=== PATIENT | female | born 1965 | race Hispanic/Latino ===

== ENCOUNTER 2018-01-17 21:07 | Emergency (ER) | payer SELFPAY ==
[2018-01-17 21:53] LABS: #Eosinphils 0.2 thou/uL (0.0-0.7); #Lymphocytes 2.4 thou/uL (1.20-3.40); #Monocytes 0.5 thou/uL (0.11-0.59); #Neutrophils 8.5 thou/uL (1.40-6.50); %Basophils 0.3 % (0.0-1.0); %Eosinophils 1.8 % (0.0-10.0); %Lymphocytes 20.7 % (21.0-51.0); %Monocytes 4.3 % (0.0-10.0); %Neutrophils 72.9 % (42.0-75.0); Hemoglobin 12.2 g/dL (12.0-16.0); Mean Corpuscular HGB CONC 33.5 g/dL (32.0-36.0); Mean Corpuscular Hemoglobin 29.8 pg (27.0-31.0); Mean Corpuscular Volume 88.8 fl (81.0-99.0); Mean Platelet Volume 6.5 fL (7.4-10.4); Platelet Count 367 thou/uL (130-400); RBC Distribution Width 13.6 % (11.5-14.5); White Blood Cell (WBC) Count 11.7 thou/uL (4.8-10.8)
[2018-01-17 22:14] LABS: ALT (SGPT) 12 U/L (8-55); AST (SGOT) 18 U/L (5-34); Albumin 4.1 g/dL (3.5-5.0); Alkaline Phosphatase 108 U/L (40-150); Anion Gap 13 mmol/L (10-20); BUN (Urea Nitrogen) 14 mg/dL (9.8-20.1); Bilirubin, Total 0.2 mg/dL (0.2-1.2); CK (CPK) 63 U/L (29-168); Calc. Creatinine Clearance 0 mL/min (70-130); Calcium 8.9 mg/dL (7.8-10.44); Carbon Dioxide 23 mmol/L (22-29); Chloride 104 mmol/L (98-107); Estimated GFR-MDRD 80; Globulin 3.2 g/dL (2.4-3.5); Glucose 149 mg/dL (70-105); Lipase 23 U/L (8-78); Potassium 3.8 mmol/L (3.5-5.1); Protein, Total 7.3 g/dL (6.0-8.3); Sodium 136 mmol/L (136-145)
[2018-01-17 22:27] LABS: BHCG - Serum Negative (NEGATIVE); Pregs Control Background? CLEAR/WHITE (CLR/WHITE); Pregs Control Bar Appear? YES (CONTROL BAR)
== END 2018-01-17 23:54 | disposition home or self-care (01) ==
LOC: ERS 21:07
DX: R10.33 Periumbilical pain (principal)
CPT/HCPCS: 36415; 80053; 82550; 83690; 84703; 85025; 93005

== ENCOUNTER 2018-05-10 21:36 | Emergency (ER) | payer SELFPAY | END 2018-05-10 23:55 | disposition home or self-care (01) | LOC: ERS 21:36 | DX: L73.9 Follicular disorder, unspecified (principal) | CPT/HCPCS: 99283 ==

== ENCOUNTER 2018-07-19 12:13 | Emergency (ER) | payer SELFPAY ==
[2018-07-19 13:36] LABS: #Eosinphils 0.3 thou/uL (0.0-0.7); #Lymphocytes 2.8 thou/uL (1.20-3.40); #Monocytes 0.5 thou/uL (0.11-0.59); #Neutrophils 8.5 thou/uL (1.40-6.50); %Basophils 0.3 % (0.0-1.0); %Eosinophils 2.8 % (0.0-10.0); %Lymphocytes 22.8 % (21.0-51.0); %Monocytes 3.8 % (0.0-10.0); %Neutrophils 70.4 % (42.0-75.0); Hemoglobin 12.5 g/dL (12.0-16.0); Mean Corpuscular Hemoglobin 28.5 pg (27.0-31.0); Mean Corpuscular Volume 89.1 fL (78.0-98.0); Mean Platelet Volume 7.3 fL (7.4-10.4); Platelet Count 410 thou/uL (130-400); Red Blood Cell (RBC) Count 4.36 mill/uL (4.20-5.40); White Blood Cell (WBC) Count 12.1 thou/uL (4.8-10.8)
[2018-07-19 13:57] LABS: Bilirubin Negative (Negative); Blood, Urine Small (Negative); Clarity CLEAR (Clear); Glucose, Urine (Dipstick) Negative (Negative); Leukocyte Negative (Negative); Nitrite Negative (Negative); Protein, Urine (Dipstick) Negative (Neg-Trace); Specific Gravity, Urine 1.016 (1.002-1.036); Urobilinogen 0.2 mg/dL (0.2-1.0)
[2018-07-19 13:59] LABS: Bacteria/HPF None Seen HPF (None Seen); Hyaline Casts/LPF 0-3 HYALINE CAST LPF (0-3 Hyaline); Pathc Cast-AUWi Flag 0.43 (0-2.49); Squamous Epithelial 0-3 HPF (0-3); WBC/HPF None Seen HPF (0-3)
[2018-07-19] MEDS ORDERED: Ketorolac Tromethamine 30 MG/ML VIAL ONE (14:07)
--- NOTE | 2018-07-19 14:09 | ULT ---
ULTRASOUND ABDOMEN LIMITED: (RIGHT UPPER QUADRANT) 07/19/2018 HISTORY: A 52-year-old female with right upper quadrant abdominal pain. FINDINGS: Gallbladder: Contracted, therefore evaluation is limited. No large gallstone identified. Common duct: 2 mm. Liver: Normal size and echogenicity. Pancreas: Nonspecific sonographic appearance. Right kidney: No hydronephrosis. IMPRESSION: 1. Contracted gallbladder. The patient is not n.p.o. 2. No biliary dilation. [facility] POS: [facility]
[2018-07-19 14:19] LABS: ALT (SGPT) 14 U/L (8-55); AST (SGOT) 19 U/L (5-34); Albumin 4.3 g/dL (3.5-5.0); Alkaline Phosphatase 96 U/L (40-150); Anion Gap 12 mmol/L (10-20); BUN (Urea Nitrogen) 19 mg/dL (9.8-20.1); Bilirubin, Total 0.2 mg/dL (0.2-1.2); Calc. Creatinine Clearance 0 mL/min (70-130); Calcium 9.3 mg/dL (7.8-10.44); Carbon Dioxide 26 mmol/L (22-29); Chloride 106 mmol/L (98-107); Estimated GFR-MDRD 58; Globulin 3.2 g/dL (2.4-3.5); Glucose 91 mg/dL (70-105); Lipase 29 U/L (8-78); Potassium 4.7 mmol/L (3.5-5.1); Protein, Total 7.5 g/dL (6.0-8.3); Sodium 139 mmol/L (136-145)
--- NOTE | 2018-07-19 15:31 | CT ---
CT OF THE ABDOMEN AND PELVIS WITHOUT CONTRAST: Date: 07/19/18 INDICATION: History of abdominal pain and bloating. COMPARISON: None. FINDINGS: The lung bases are clear. The unopacified liver, pancreas, and adrenal glands appear within normal limits. The spleen is normal appearing. There is a 3.0 mm and a 2.0 mm calculus involving the mid to lower pole of the left kidne y, respectively. No right-sided renal calculus is evident. No ureteral calculus is noted. There are bilateral tubal ligation clips. No free fluid or enlarged lymph nodes are evident. Unopacified large and small bowel are unremarkable appearing. There is a normal appendix in the right lower quadrant of the abdomen. No definite acute osseous abnormality is evident. IMPRESSION: 1. Left-sided nephrolithiasis appears similar to a comparison in 2017. 2. Bilateral tubal ligation clips. POS: [facility]
== END 2018-07-19 15:55 | disposition home or self-care (01) ==
LOC: ERS 12:13
DX: N20.0 Calculus of kidney (principal); K80.50 Calculus of bile duct without cholangitis or cholecystitis without obstruction
CPT/HCPCS: 74176; 76705; 80053; 81003; 81015; 83690; 85025; 96374; J1885

== ENCOUNTER 2020-08-19 21:55 | Inpatient (IN) | payer SELFPAY ==
[~2020-08-19 21:55] MED LIST: Iopamidol-370 76% 500 ML 1 ML ONE
[2020-08-19 22:29] LABS: Bacteria/HPF None Seen HPF (None Seen); Bilirubin Negative (Negative); Blood, Urine 2+ (Negative); Clarity Clear (Clear); Glucose, Urine (Dipstick) Normal (Negative); Ketone, Urine Negative (Negative); Leukocyte 25 Leu/uL (Negative); Mucous/LPF Rare LPF (<2+); Nitrite Negative (Negative); Protein, Urine (Dipstick) 30 mg/dL (Neg-Trace); Specific Gravity, Urine 1.019 (1.002-1.036); Squamous Epithelial 0-3 HPF (0-3); Urobilinogen Normal mg/dL (Less than 2); pH, Urine 7.5 (5.0-9.0)
[2020-08-19] MEDS ORDERED: Ondansetron ODT 4 MG TAB ONE (22:43)
[2020-08-19 22:54] LABS: Hemoglobin 12.3 g/dL (12.0-16.0); Mean Corpuscular HGB CONC 33.2 g/dL (32.0-36.0); Mean Corpuscular Hemoglobin 29.3 pg (27.0-31.0); Mean Corpuscular Volume 88.3 fL (78.0-98.0); Mean Platelet Volume 7.1 fL (7.4-10.4); Platelet Count 352 thou/uL (130-400); RBC Distribution Width 12.5 % (11.5-14.5); White Blood Cell (WBC) Count 16.5 thou/uL (4.8-10.8)
[2020-08-19 23:05] LABS: Band 3 % (5-11); Lymphocytes 10 % (21-51); MDiff Complete? YES; Monocytes 2 % (0-10); Neutrophil 85 % (42-75); Platelet Morphology Comment Appears Adequate
[2020-08-19 23:07] LABS: ALT (SGPT) 12 U/L (8-55); AST (SGOT) 18 U/L (5-34); Albumin 3.8 g/dL (3.5-5.0); Alkaline Phosphatase 89 U/L (40-110); Anion Gap 13 mmol/L (10-20); BUN (Urea Nitrogen) 20 mg/dL (9.8-20.1); Bilirubin, Total 0.4 mg/dL (0.2-1.2); Calc. Creatinine Clearance 0 mL/min (70-130); Calcium 8.4 mg/dL (7.8-10.44); Carbon Dioxide 24 mmol/L (22-29); Chloride 103 mmol/L (98-107); Glucose 106 mg/dL (70-105); Lipase 244 U/L (8-78); Potassium 3.3 mmol/L (3.5-5.1); Protein, Total 6.8 g/dL (6.0-8.3); Sodium 137 mmol/L (136-145)
[2020-08-19] MEDS ORDERED: Morphine 4 MG/ML VIAL ONE (23:52)
[2020-08-20] MEDS ORDERED: Piperacillin/Tazobactam 4.5 GM VIAL ONE (00:20)
[2020-08-20 02:03] LABS: Lactic Acid 1.9 mmol/L (0.5-2.2)
[2020-08-20] MEDS ORDERED: Ondansetron PF 4 MG/2 ML Vial IVP PRN ×2 (03:45→10:06)
[2020-08-20] MEDS ORDERED: Acetaminophen 325 MG TAB PO PRN (03:45)
[2020-08-20] MEDS ORDERED: Ondansetron ODT 4 MG TAB SL PRN (03:45)
[2020-08-20 04:06] VITALS: BMI 32.6
[2020-08-20] MEDS: Lactated Ringer's 1,000 ML IV SCH ×5 (04:22→22:51)
[2020-08-20] MEDS: Piperacillin/Tazobactam 4.5 GM in Sodium Chloride 0.9% 100 ML IVPB SCH ×4 (05:24→20:17)
[2020-08-20] MEDS: Morphine 4 MG/ML VIAL SLOW IVP PRN ×3 (05:47→22:47)
--- NOTE | 2020-08-20 07:46 | CT ---
CT ABDOMEN AND PELVIS WITH CONTRAST: COMPARISON: 07/19/2018. HISTORY: Lower abdominal pain that began at 4:30. Burning with urination. TECHNIQUE: Multiple contiguous axial images were obtained in a CT of the abdomen and pelvis with contrast. Sagi ttal and coronal reformats were performed. FINDINGS: Scattered diverticula are seen in the colon. Stranding changes seen surrounding some of the divertic kenrick in the sigmoid colon. These diverticula and stranding changes are immediately on top of the dome of the urinary bladder. There are multiple scattered foci of free air in the abdomen consistent wit h a perforation of this acute diverticulitis. No focal fluid collection is seen in the abdomen or pe lvis. The liver, gallbladder, right kidney, adrenal glands, spleen, and pancreas are unremarkable. There i s a small 1.2 cm cyst in the left kidney. No abdominal or pelvic lymphadenopathy are seen. The small bowel is normal in caliber. The appendix is normal. The reproductive organs are unremarkable. Tubal ligation clips are seen bilaterally. The osseous structures and visualized inferior thorax are unremarkable. The abdominal wall soft tiss ues are unremarkable. IMPRESSION: Perforated acute diverticulitis without evidence of focal drainable intraabdominal fluid collection. The inflammatory changes are immediately along the dome of the urinary bladder and is likely the cau se for the patient's urinary urgency and burning. No definite fistula is seen between the segment of bowel and the urinary bladder at this time. POS: [facility]
[2020-08-20] MEDS ORDERED: Ondansetron ODT 4 MG TAB PO PRN ×2 (10:06→10:11)
[2020-08-20] MEDS ORDERED: Morphine 2 MG/ML VIAL SLOW IVP PRN (10:06)
[2020-08-20] MEDS ORDERED: Ondansetron ODT 8 MG TAB SL PRN (10:11)
[2020-08-20] MEDS ORDERED: Ondansetron ODT 8 MG TAB PO PRN (10:11)
[2020-08-20] MEDS ORDERED: Ketorolac Tromethamine 30 MG/ML VIAL IVP PRN (10:11)
[2020-08-20] MEDS ORDERED: Ketorolac Tromethamine 30 MG/ML VIAL IVP SCH (10:15)
--- NOTE | 2020-08-20 10:38 | HP ---
HISTORY OF PRESENT ILLNESS: Coleen Moore is a 54-year-old female, who works for a [employer]. She began experiencing lower abdominal pain yesterday, suffered anorexia, increased pain with movement, nausea without vomiting, but no fever, seen in the emergency room, evaluated, noted to have a white count of 16, hemoglobin of 12. Comprehensive metabolic profile unremarkable. Underwent a CAT scan revealing changes consistent with diverticulitis. There were scattered diverticula seen in the colon, stranding changes noted surrounding some of the diverticula in the sigmoid colon. There were some scattered foci of free air in the abdominal cavity, but no focal fluid collection. The patient has been admitted, placed on intravenous antibiotics, n.p.o. 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 ALLERGIES: NONE. TOBACCO: None. ALCOHOL: Rarely. MEDICATIONS: None routinely. PAST SURGICAL HISTORY: Umbilical hernia repair in the past, bilateral tubal ligation, colonoscopy at age 51, preformed by [facility] residency, referred from [facility] at that time. PAST MEDICAL HISTORY: Noncontributory. SOCIAL HISTORY: The patient is with 4 children. REVIEW OF SYSTEMS: Noncontributory. FAMILY HISTORY: Noncontributory. PHYSICAL EXAMINATION: VITAL SIGNS: Height 5 feet 3 inches, weight 184 pounds, 32 BMI. Temperature 98.7, pulse 82, blood pressure 105/65. HEAD, EARS, EYES, NOSE, AND THROAT: Unremarkable. LUNGS: Clear to auscultation. CARDIAC: Regular rate and rhythm without murmur or gallop. ABDOMEN: Soft with mild voluntary guarding in her right upper quadrant, right lower quadrant, softer in her left upper quadrant, significantly more guarding in her suprapubic area, left lower quadrant. EXTREMITIES: Without edema. LABORATORY DATA: As noted above. CAT scan findings as noted above. ASSESSMENT AND PLAN: Diverticulitis. This is her first episode. Although, there were small foci of free air seen in the abdominal cavity. I think her exam does not suggest that she needs surgery. Overall, she feels better. I would suggest ice chips, bowel rest, IV fluids, aggressive intravenous antibiotics. I have talked to her about the complications of diverticulitis, possible indications for surgery, but at this time we are treating her nonsurgical hoping to avoid an operation. I have recommended n.p.o. and if she improves, we will start liquids and advance to soft diet, as her improves, hopefully, eventually, we can transition to oral antibiotics as an outpatient to finish up this course of treatment. We would recommend low-fiber diet for 2 weeks and high-fiber after that. We will follow her clinically. Job ID: [id number]
[2020-08-20] MEDS: Ketorolac Tromethamine 30 MG/ML VIAL IVP SCH ×2 (12:26→17:54)
[2020-08-20 13:47] LABS: SARS-CoV-2 MS2 Positive; SARS-CoV-2 N Gene Negative; SARS-CoV-2 S Gene Negative; SARS-CoV-2 by NAA Not Detected (NotDetected); SARS-CoV-2 orf1ab Negative
[2020-08-20] MEDS: Famotidine/PF 20 mg/2ml Vial SLOW IVP SCH (20:18)
[2020-08-20] MEDS: Enoxaparin Sodium 40 MG/0.4 ML SYRINGE SC SCH (20:18)
[2020-08-21] MEDS: Ketorolac Tromethamine 30 MG/ML VIAL IVP SCH ×4 (00:07→18:36)
[2020-08-21] MEDS: Piperacillin/Tazobactam 4.5 GM in Sodium Chloride 0.9% 100 ML IVPB SCH ×4 (01:45→20:50)
[2020-08-21 05:28] LABS: ALT (SGPT) 8 U/L (8-55); AST (SGOT) 15 U/L (5-34); Albumin 2.9 g/dL (3.5-5.0); Alkaline Phosphatase 68 U/L (40-110); Anion Gap 13 mmol/L (10-20); BUN (Urea Nitrogen) 17 mg/dL (9.8-20.1); Calc. Creatinine Clearance 84 mL/min (70-130); Calcium 8.1 mg/dL (7.8-10.44); Carbon Dioxide 24 mmol/L (22-29); Chloride 106 mmol/L (98-107); Globulin 2.8 g/dL (2.4-3.5); Glucose 82 mg/dL (70-105); Potassium 3.3 mmol/L (3.5-5.1); Protein, Total 5.7 g/dL (6.0-8.3); Sodium 140 mmol/L (136-145)
[2020-08-21 05:41] LABS: Band 11 % (5-11); Eosinophils 2 % (0-10); Hypochromia SLIGHT = 6-15 cells (100X) (0-5/hpf); Lymphocytes 11 % (21-51); MDiff Complete? YES; Mean Corpuscular Hemoglobin 29.9 pg (27.0-31.0); Mean Corpuscular Volume 90.6 fL (78.0-98.0); Mean Platelet Volume 7.3 fL (7.4-10.4); Monocytes 1 % (0-10); Neutrophil 75 % (42-75); Platelet Count 253 thou/uL (130-400); Platelet Morphology Comment Appears Adequate; RBC Distribution Width 12.8 % (11.5-14.5); Red Blood Cell (RBC) Count 3.33 mill/uL (4.20-5.40); White Blood Cell (WBC) Count 17.4 thou/uL (4.8-10.8)
[2020-08-21] MEDS: Ondansetron PF 4 MG/2 ML Vial IVP PRN (06:15)
[2020-08-21] MEDS: Famotidine/PF 20 mg/2ml Vial SLOW IVP SCH ×2 (08:28→20:51)
[2020-08-21] MEDS: Morphine 4 MG/ML VIAL SLOW IVP PRN ×2 (08:28→13:46)
[2020-08-21] MEDS: Lactated Ringer's 1,000 ML IV SCH (08:29)
--- NOTE | 2020-08-21 17:39 | PRG ---
DATE OF SERVICE: 08/21/2020 SUBJECTIVE: Coleen Moore is feeling better, although still having some abdominal pain. She states that when she presented in the emergency room yesterday, she had terrible pain, but it has improved since last night and remains about the same today. She has passed flatus, but not yet had a bowel movement. OBJECTIVE: VITAL SIGNS: She has been afebrile, 99.1 degrees; 86; 18; 172/82. LUNGS: Clear to auscultation. CARDIAC: Regular rate and rhythm without murmur, rub, or gallop. ABDOMEN: Soft with voluntary guarding in all quadrants with more severe pain in suprapubic and left lower quadrant. EXTREMITIES: Unremarkable. LABORATORY DATA: This morning, her white count is 17.4 with an unremarkable differential, hemoglobin 10. Sodium 140 and potassium 3.3. ASSESSMENT AND PLAN: Perforated diverticulitis. I had a long discussion with the patient regarding treatment options for emergent operations for diverticulitis that required resection and colostomy and explained her the importance of bowel rest, intravenous antibiotics to try to avoid operation. At this point, she is agreeable. She is much improved today than when she presented to the emergency room yesterday, but I am still concerned about her abdominal exam. She did have free air under her diaphragms and elsewhere without any significant fluid. At this point, we would recommend continuation of intravenous antibiotics. We would continue bowel rest, allowing only sips and chips. We will change her IV fluid to LR with potassium and recheck her labs tomorrow as she has mild hypokalemia. She has good activity level and she is on DVT prophylaxis. I will be out of town for the next [address] Carrasco will be covering and inform him of her condition. He will follow her tomorrow. Job ID: [id number]
[2020-08-21] MEDS: Potassium Chloride 20 MEQ in Lactated Ringer's 1,000 ML IV SCH (19:09)
[2020-08-21] MEDS: Enoxaparin Sodium 40 MG/0.4 ML SYRINGE SC SCH (20:51)
[2020-08-22] MEDS: hydrALAZINE 20 MG/ML VIAL SLOW IVP PRN ×4 (00:01→17:26)
[2020-08-22] MEDS: Piperacillin/Tazobactam 4.5 GM in Sodium Chloride 0.9% 100 ML IVPB SCH ×4 (00:03→20:29)
[2020-08-22] MEDS: Potassium Chloride 20 MEQ in Lactated Ringer's 1,000 ML IV SCH ×5 (01:21→18:54)
[2020-08-22] MEDS: Ondansetron PF 4 MG/2 ML Vial IVP PRN ×2 (02:13→08:57)
[2020-08-22 05:59] LABS: #Eosinphils 0.2 thou/uL (0.0-0.7); #Lymphocytes 1.8 thou/uL (1.20-3.40); #Monocytes 0.6 thou/uL (0.11-0.59); #Neutrophils 16.2 thou/uL (1.40-6.50); %Basophils 0.2 % (0.0-1.0); %Eosinophils 0.8 % (0.0-10.0); %Lymphocytes 9.5 % (21.0-51.0); %Monocytes 3.2 % (0.0-10.0); %Neutrophils 86.3 % (42.0-75.0); Hemoglobin 9.9 g/dL (12.0-16.0); Mean Corpuscular HGB CONC 33.4 g/dL (32.0-36.0); Mean Corpuscular Hemoglobin 30.5 pg (27.0-31.0); Mean Corpuscular Volume 91.3 fL (78.0-98.0); Mean Platelet Volume 7.5 fL (7.4-10.4); Platelet Count 273 thou/uL (130-400); RBC Distribution Width 12.9 % (11.5-14.5); Red Blood Cell (RBC) Count 3.24 mill/uL (4.20-5.40); White Blood Cell (WBC) Count 18.8 thou/uL (4.8-10.8)
[2020-08-22] MEDS: Ketorolac Tromethamine 30 MG/ML VIAL IVP SCH ×5 (06:00→23:18)
[2020-08-22 06:18] LABS: Anion Gap 20 mmol/L (10-20); BUN (Urea Nitrogen) 21 mg/dL (9.8-20.1); Calc. Creatinine Clearance 61 mL/min (70-130); Calcium 8.6 mg/dL (7.8-10.44); Carbon Dioxide 18 mmol/L (22-29); Chloride 108 mmol/L (98-107); Glucose 93 mg/dL (70-105); Potassium 3.8 mmol/L (3.5-5.1); Sodium 142 mmol/L (136-145)
[2020-08-22] MEDS: Famotidine/PF 20 mg/2ml Vial SLOW IVP SCH ×2 (08:57→20:29)
[2020-08-22] MEDS ORDERED: Sodium Chloride 0.9% 500 ML IV SCH (13:30)
--- NOTE | 2020-08-22 13:46 | PRG ---
DATE OF SERVICE: 08/22/2020 SUBJECTIVE: The patient states that the lower abdominal pain is pretty well resolved, but she has been having some intermittent left upper quadrant abdominal pain. She states that she is concerned that her blood pressure is high as she has never had high blood pressure before. OBJECTIVE: VITAL SIGNS: Temperature is 98, pulse 74, blood pressure 171/85. GENERAL: She is awake, alert, somewhat anxious, in no apparent distress. She says she feels a little short of breath, but her O2 saturation is 98% on room air. LUNGS: Clear. ABDOMEN: Soft and obese. There is really not very much tenderness. LABORATORY DATA: Her white count is 18.8, H and H 9.9 and 29, platelet count 273. Her electrolytes, her creatinine is 1.4. ASSESSMENT: Diverticulitis. PLAN: IV fluids, O2, medicine consult. We will add Flagyl. She did have positive gram-negative melony in her blood. Job ID: [id number]
[2020-08-22] MEDS: Scopolamine 1.5 mg/72 hour Patch TD SCH (13:50)
[2020-08-22] MEDS: metroNIDAZOLE 500 MG in Premix Bag 1 BAG IVPB SCH ×2 (15:40→23:18)
[2020-08-22 19:15] LABS: Hemoglobin 10.3 g/dL (12.0-16.0)
[2020-08-22 19:35] LABS: ALT (SGPT) 11 U/L (8-55); AST (SGOT) 19 U/L (5-34); Albumin 3.4 g/dL (3.5-5.0); Alkaline Phosphatase 110 U/L (40-110); Anion Gap 14 mmol/L (10-20); BUN (Urea Nitrogen) 23 mg/dL (9.8-20.1); BUN/Creatinine Ratio 14.11; Bilirubin, Direct 0.5 mg/dL (0.1-0.3); Bilirubin, Total 0.9 mg/dL (0.2-1.2); Calc. Creatinine Clearance 53 mL/min (70-130); Calcium 8.9 mg/dL (7.8-10.44); Carbon Dioxide 25 mmol/L (22-29); Chloride 107 mmol/L (98-107); Glucose 94 mg/dL (70-105); Lipase 43 U/L (8-78); Phosphorus 2.2 mg/dL (2.3-4.7); Potassium 3.6 mmol/L (3.5-5.1); Protein, Total 6.9 g/dL (6.0-8.3); Sodium 142 mmol/L (136-145)
--- NOTE | 2020-08-22 19:40 | RAD ---
EXAM: Chest PA and lateral: HISTORY: Shortness of breath. COMPARISON: None FINDINGS: Heart: Normal cardiac silhouette Aorta: Unremarkable Pulmonary vessels: Normal Costophrenic angles: Minimal blunting of the costophrenic angles may be due to small effusion. Lungs: No consolidation or masses. Pneumothorax: No pneumothorax Osseous structures: No osseous abnormalities Additional findings: There is evidence of pneumoperitoneum. IMPRESSION: 1. Minimal blunting of costophrenic angles likely due to small effusion 2. Pneumoperitoneum. Consider general surgical consultation Results discussed with Love patient's nurse 08/22/2020 at 7:36 PM Code CR
[2020-08-22] MEDS: Enoxaparin Sodium 40 MG/0.4 ML SYRINGE SC SCH (20:29)
--- NOTE | 2020-08-22 22:46 | ULT ---
Exam: Bilateral renal ultrasound HISTORY: Acute kidney insufficiency COMPARISON: None FINDINGS: Right kidney: Normal cortical echotexture. No hydronephrosis. Right kidney measurements: 612.1 x 4.2 x 5.3 cm. Left kidney: Normal cortical echotexture. No hydronephrosis. Hypoechoic focus in the left renal lauri x measures 0.8 x 1.0 x 1.0 cm. Characterization is incomplete. Left kidney measurements 13.9 x 5.5 x 5.1 cm. Urinary bladder: Imaging evaluation due to inadequate bladder distention. Bilateral ureteral jets are identified. IMPRESSION: 1. No hydronephrosis 2. Indeterminate lesion in the left kidney. Correlation made with a CT from 08/19/2020 favors a renal cyst, possibly slightly complex.
[2020-08-23] MEDS: Piperacillin/Tazobactam 4.5 GM in Sodium Chloride 0.9% 100 ML IVPB SCH ×4 (01:39→20:15)
[2020-08-23] MEDS: Ondansetron PF 4 MG/2 ML Vial IVP PRN (03:48)
--- NOTE | 2020-08-23 04:58 | PDOC.HHP ---
Hospitalist HPI - History of Present Illness History of Present Illness: This is a consultation note CONSULTATION DATE: 08/22/2020 TIME OF ASSESSMENT: 1800 REASON FOR CONSULTATION: Medical management of high blood pressure REFERRING PHYSICIAN: Dr. Carrasco PRIMARY CARE PHYSICIAN: Dr. Ryan CHIEF COMPLAINT: Shortness of breath and elevated blood pressure HPI: This is a 54-year-old woman who was admitted to the hospital on 08/20/2020 after presenting with lower abdominal pain and found to have diverticulitis on CT imaging of the abdomen and pelvis. There are small foci of free air seen in the abdominal cavity however she did not have any significant discomfort on examination therefore was recommended conservative management. Patient states that she has had intermittent severe lower abdominal pain and she is being considered for surgery at the moment. We have been consulted due to elevated blood pressures in the 170s to 180s. She denies having any history of hypertension or other medical problems and states that her blood pressures usually within normal range. She also reports having shortness of breath that has persisted since admission. Her sats have been 97% on room air and she denies any cough or hemoptysis. Denies any chest pain. States it seems to have really developed following her admission but she recalls that she did experience an episode of shortness of breath while she was at home which she attributes to the severe abdominal pain she was experiencing. States she became very winded after trying to walk down the hallway in her house. She is usually very active and has no issues or shortness of breath at baseline, neither at rest nor with exertion. PAST MEDICAL HISTORY: None. PAST SURGICAL HISTORY: 1. Umbilical hernia in the past 2. Tubal ligation 3. Colonoscopy at age 51 SOCIAL HISTORY: Denies any tobacco use alcohol consumption or drug use. She is fully independent and lives with her family. FAMILY HISTORY: Noncontributory ALLERGIES: No known drug allergies CURRENT MEDICATIONS: She is not on any home medications Hospitalist ROS - Medication Medications: Active Medications Generic Name Dose Route Start Last Admin Trade Name Freq PRN Reason Stop Dose Admin Enoxaparin Sodium 40 mg 08/20/20 21:00 08/22/20 20:29 Enoxaparin Sodium 40 Mg/0.4 Ml Syringe SC 40 mg 2100 EVERARDO Administration Famotidine 20 mg 08/20/20 21:00 08/22/20 20:29 Famotidine/Pf 20 Mg/2ml Vial SLOW IVP 20 mg Q12HR EVERARDO Administration Hydralazine HCl 10 mg 08/20/20 10:06 08/22/20 17:26 Hydralazine 20 Mg/Ml Vial SLOW IVP 10 mg Q4H PRN Administration SBP > 170 or DBP > 100 Piperacillin Sod/Tazobactam 100 mls @ 200 mls/hr 08/20/20 14:00 08/23/20 01:39 Sod 4.5 gm/ Sodium Chloride IVPB 100 mls 0100,0800,1400,2000 EVERARDO Administration Metronidazole 500 mg/ Device 100 mls @ 100 mls/hr 08/22/20 14:00 08/22/20 23:18 IVPB 100 mls Q8HR EVERARDO Administration Potassium Chloride 20 meq/ 1,010 mls @ 75 mls/hr 08/22/20 18:34 08/22/20 18:54 Lactated Ringer's IV Not Given .[id number] EVERARDO Ketorolac Tromethamine 30 mg 08/20/20 12:00 08/22/20 23:18 Ketorolac Tromethamine 30 Mg/Ml Vial IVP 08/25/20 12:01 30 mg Q6HR EVERARDO Administration Morphine Sulfate 4 mg 08/20/20 10:06 08/21/20 13:46 Morphine 4 Mg/Ml Vial SLOW IVP 4 mg Q2H PRN Administration Moderate Pain (4-6) Ondansetron HCl 4 mg 08/20/20 10:11 08/23/20 03:48 Ondansetron Pf 4 Mg/2 Ml Vial IVP 4 mg Q6H PRN Administration Nausea/Vomiting Scopolamine 1.5 mg 08/22/20 14:00 08/22/20 13:50 Scopolamine 1.5 Mg/72 Hour Patch TD 1.5 mg Q3D EVERARDO Administration - Exam General Appearance: NAD, awake alert General - other findings: VS: Temp 98.1, HR 69, BP 179/78, RR 18, O2 sat 98% on 2 L by nasal cannula. Eye: PERRL, anicteric sclera ENT: normocephalic atraumatic, no oropharyngeal lesions Neck: supple, symmetric, no lymphadenopathy Heart: RRR, no murmur, no gallops, normal peripheral pulses Respiratory: CTAB, no wheezes, no rales, no ronchi, normal chest expansion Respiratory - other findings: Appears short of breath while speaking Gastrointestinal: soft, non-tender, non-distended, no guarding, no rigidity Extremities: no edema Skin: normal turgor, no lesions, no rashes Neurological: cranial nerve grossly intact, normal sensation to touch Musculoskeletal: normal tone, normal strength, no muscle wasting Psychiatric: normal affect, normal behavior, A&O x 3 Hospitalist Results - Labs Result Diagrams: 08/22/20 19:00 08/22/20 19:00 Lab results: WBC 18.8 thou/uL (4.8-10.8) H 08/22/20 05:38 Hgb 10.3 g/dL (12.0-16.0) L 08/22/20 19:00 Hct 31.6 % (36.0-47.0) L 08/22/20 19:00 MCV 91.3 fL (78.0-98.0) 08/22/20 05:38 Plt Count 273 thou/uL (130-400) 08/22/20 05:38 Neutrophils % 86.3 % (42.0-75.0) H 08/22/20 05:38 Band Neuts % (Manual) 11 % (5-11) 08/21/20 04:49 Sodium 142 mmol/L (136-145) 08/22/20 19:00 Potassium 3.6 mmol/L (3.5-5.1) 08/22/20 19:00 Chloride 107 mmol/L (98-107) 08/22/20 19:00 Carbon Dioxide 25 mmol/L (22-29) 08/22/20 19:00 BUN 23 mg/dL (9.8-20.1) H 08/22/20 19:00 Creatinine 1.63 mg/dL (0.6-1.1) H 08/22/20 19:00 Glucose 94 mg/dL (70-105) 08/22/20 19:00 Lactic Acid 1.9 mmol/L (0.5-2.2) 08/20/20 01:40 Calcium 8.9 mg/dL (7.8-10.44) 08/22/20 19:00 Total Bilirubin 0.9 mg/dL (0.2-1.2) 08/22/20 19:00 AST 19 U/L (5-34) 08/22/20 19:00 ALT 11 U/L (8-55) 08/22/20 19:00 Alkaline Phosphatase 110 U/L (40-110) 08/22/20 19:00 B-Natriuretic Peptide 318.4 pg/mL (0-100) H 08/22/20 19:00 Serum Total Protein 6.9 g/dL (6.0-8.3) 08/22/20 19:00 Albumin 3.4 g/dL (3.5-5.0) L 08/22/20 19:00 Lipase 43 U/L (8-78) 08/22/20 19:00 Urine Ketones Negative mg/dL (Negative) 08/19/20 22:10 Urine Blood 2+ (Negative) A 08/19/20 22:10 Urine Nitrite Negative (Negative) 08/19/20 22:10 Ur Leukocyte Esterase 25 Romeo/uL (Negative) A 08/19/20 22:10 Urine RBC 11-20 HPF (0-3) A 08/19/20 22:10 Urine WBC 4-6 HPF (0-3) A 08/19/20 22:10 Ur Squamous Epith Cells 0-3 HPF (0-3) 08/19/20 22:10 Urine Bacteria None Seen HPF (None Seen) 08/19/20 22:10 Hospitalist H&P A/P - Problem (1) Elevated BP without diagnosis of hypertension Code(s): R03.0 - ELEVATED BLOOD-PRESSURE READING, W/O DIAGNOSIS OF HTN Status: Acute Assessment and Plan: Monitor BP. Has been given hdyralazine ordered by primary team. Will try to cut down IV fluids as well to 75 mLs/hr (2) Shortness of breath Code(s): R06.02 - SHORTNESS OF BREATH Status: Acute Assessment and Plan: Will check labs including BNP and d-dimer. Also repeat H/H. Obtain CXR to assess for possible fluid overload In the meantime cut fluids down to 75mLs/hr. Monitor O2 sats. (3) VICKIE (acute kidney injury) Code(s): N17.9 - ACUTE KIDNEY FAILURE, UNSPECIFIED Status: Acute Assessment and Plan: Was started on LR at 150 mL/hr earlier today. Repeat renal function to assess for improvement. Continue gentle hydration as mentioned above. Renal ultrasound ordered. Consider Nephrology consult if no significant improvement. (4) Diverticulitis Code(s): K57.92 - DVTRCLI OF INTEST, PART UNSP, W/O PERF OR ABSCESS W/O BLEED Status: Acute Assessment and Plan: As per surgical team. - Plan Plan: CODE STATUS FULL Case discussed with attending who agrees with plan as above.
[2020-08-23] MEDS ORDERED: Potassium Phosphate 30 MMOL in Sodium Chloride 0.9% 500 ML IVPB SCH (05:30)
[2020-08-23] MEDS: metroNIDAZOLE 500 MG in Premix Bag 1 BAG IVPB SCH ×3 (05:31→21:54)
[2020-08-23] MEDS: Ketorolac Tromethamine 30 MG/ML VIAL IVP SCH (05:32)
[2020-08-23 05:55] LABS: #Basophils 0.2 thou/uL (0.0-0.2); #Eosinphils 0.2 thou/uL (0.0-0.7); #Lymphocytes 1.3 thou/uL (1.20-3.40); #Monocytes 0.5 thou/uL (0.11-0.59); %Basophils 1.3 % (0.0-1.0); %Lymphocytes 10.3 % (21.0-51.0); %Monocytes 4.4 % (0.0-10.0); Hemoglobin 9.3 g/dL (12.0-16.0); Mean Corpuscular HGB CONC 32.9 g/dL (32.0-36.0); Mean Platelet Volume 7.3 fL (7.4-10.4); Platelet Count 271 thou/uL (130-400); RBC Distribution Width 12.8 % (11.5-14.5); Red Blood Cell (RBC) Count 3.09 mill/uL (4.20-5.40); White Blood Cell (WBC) Count 12.3 thou/uL (4.8-10.8)
[2020-08-23 06:16] LABS: Anion Gap 19 mmol/L (10-20); BUN (Urea Nitrogen) 29 mg/dL (9.8-20.1); Calc. Creatinine Clearance 47 mL/min (70-130); Calcium 8.3 mg/dL (7.8-10.44); Carbon Dioxide 19 mmol/L (22-29); Chloride 110 mmol/L (98-107); Glucose 98 mg/dL (70-105); Potassium 3.8 mmol/L (3.5-5.1); Sodium 144 mmol/L (136-145)
[2020-08-23] MEDS ORDERED: Amlodipine 5 MG TAB PO PRN (08:02)
[2020-08-23] MEDS: Saccharomyces boulardii 250 MG CAP PO SCH (08:45)
[2020-08-23] MEDS: Famotidine/PF 20 mg/2ml Vial SLOW IVP SCH ×2 (09:08→20:16)
--- NOTE | 2020-08-23 09:30 | ULT ---
BILATERAL LOWER EXTREMITY VENOUS DUPLEX EXAM: INDICATION: Elevated D-dimer. Lower extremity pain and edema. FINDINGS: Veins of both lower extremities evaluated with ultrasound Doppler, color Doppler, and compression. Deep veins show normal blood flow and compression. No evidence of DVT. IMPRESSION: Negative bilateral lower extremity venous duplex exam. POS: [facility]
--- NOTE | 2020-08-23 12:23 | CON ---
DATE OF CONSULTATION: 08/23/2020 HISTORY OF PRESENT ILLNESS: Ms. Moore is a 54-year-old white female who was admitted for abdominal pain. She was diagnosed to have diverticulitis. CAT scan verified the diverticulitis. We are now being consulted for her acute kidney injury. REVIEW OF SYSTEMS: Positive for abdominal pain, decrease in nature. No chest pain or shortness of breath. No nausea. No vomiting. No diarrhea. No constipation. No productive cough. No fever or chills. No syncopal episode. No nausea. No vomiting. No diarrhea. No constipation. MEDICATIONS: 1. Ketorolac 30 mg IV q.6-currently on hold. 2. Lovenox 40 mg subcu daily. 3. Norvasc 5 mg daily. 4. Morphine sulfate 2 mg IV q.2 hours p.r.n. 5. Zofran 4 mg q.6 p.r.n. 6. Zosyn 4.5 g IV q.6 hours. 7. Lactated Ringer's at 75 mL/hour. 8. Florastor 250 mg daily. 9. Scopolamine transdermal q.3 days. PAST MEDICAL HISTORY: The patient denies any significant medical problems. PAST SURGICAL HISTORY: Status post umbilical hernia repair, status post bilateral tubal ligation, status post colonoscopy. SOCIAL HISTORY: The patient , lives in [place]. Four children. No smoking. No alcohol intake. No IV drug abuse. 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 Education, GED. ALLERGIES: NONE. TRAUMA: None. IMMUNIZATIONS: Up to date. HOSPITALIZATIONS: Please see past medical history. FAMILY HISTORY: Positive family history of ESRD. Father had a kidney transplant and grandmother was on dialysis. PHYSICAL EXAMINATION: VITAL SIGNS: Blood pressure is 145/66, heart rate 52, respiratory rate 18, temperature 98.1, O2 saturation 97% room air. GENERAL: The patient is noted to be awake, alert, comfortable, not in overt distress. SKIN: Adequate turgor. HEENT: She has slightly pale conjunctivae. Anicteric sclerae. NECK: No neck mass. No carotid bruits. No JVD. CHEST: No deformities. LUNGS: Clear breath sounds. No wheezing. No crackles. HEART: Normal sinus rhythm. No murmur. No gallops. No rubs. ABDOMEN: Globular, soft, nontender. No masses. Positive for bowel sounds. Negative for epigastric bruits. GROIN: No inguinal lymphadenopathy. EXTREMITIES: No edema. No deformities. NEUROLOGIC: Awake and oriented to 3 spheres. Moving all extremities. No tremors. No asterixis. No ataxia. LABORATORY DATA: Laboratories of August 23, 2020; white count 12.3, hemoglobin 9.3. Sodium 144, potassium 3.8, chloride 110, carbon dioxide 19, BUN 29, creatinine 1.81. August 22, 2020, creatinine 1.63. August 21, 2020, creatinine 1.02. Please note, calcium is noted at 8.3. Urinalysis of August 19, 2020, showed a protein of 30, rbc 11 to 20, wbc 4 to 6. Repeat urinalysis is pending. Renal ultrasound of August 22, 2020 unremarkable. Chest x-ray of August 22, 2020 ? Of small effusion. Pneumoperitoneum-surgery following. ASSESSMENT AND PLAN: 1. Acute kidney injury-I feel this is a hemodynamically-mediated renal dysfunction related to the previous Toradol use. The plan is simply to observe her. No indication for any dialytic intervention. Continue IV fluid. Continue to hold Ketoralac. 2. Acute diverticulitis. Surgery is following, on IV antibiotics. 3. The patient states that the abdominal pain is much improved. 4. Recheck basic met and CBC in a.m. Job ID: [id number]
--- NOTE | 2020-08-23 12:44 | EKG ---
Test Reason : Blood Pressure : / mmHG Vent. Rate : 075 BPM Atrial Rate : 075 BPM P-R Int : 134 ms QRS Dur : 092 ms QT Int : 436 ms P-R-T Axes : -09 044 -09 degrees QTc Int : 486 ms Normal sinus rhythm Abnormal ECG Confirmed by JASMINE FELIPE ([id number]), editor producer SUMAN TODD ([id number]) on 08/23/2020 12:43:59 PM Referred By: Confirmed By:JASMINE FELIPE
[2020-08-23] MEDS: Potassium Chloride 20 MEQ in Lactated Ringer's 1,000 ML IV SCH ×2 (12:54→22:08)
[2020-08-23 15:13] LABS: Anion Gap 22 mmol/L (10-20); BUN (Urea Nitrogen) 35 mg/dL (9.8-20.1); Calc. Creatinine Clearance 43 mL/min (70-130); Calcium 8.4 mg/dL (7.8-10.44); Carbon Dioxide 16 mmol/L (22-29); Chloride 110 mmol/L (98-107); Glucose 90 mg/dL (70-105); Potassium 4.4 mmol/L (3.5-5.1); Sodium 144 mmol/L (136-145)
--- NOTE | 2020-08-23 15:42 | PRG ---
DATE OF SERVICE: 08/23/2020 SUBJECTIVE: The patient says she is feeling a lot better. Really is not having any significant pain. Although she did have some nausea and vomiting early, she feels a lot better and she is hungry and she wants to try some clear liquids. OBJECTIVE: VITAL SIGNS: On examination, her temperature is 98.3, pulse 48, blood pressure 176/62. GENERAL: She is awake, alert, no apparent distress. ABDOMEN: Soft, nondistended, nontender. Urine output is 800. Her white count is down to 12, H and H are 9 and 28, platelet count 271. Her creatinine bumped a little more. felt like it is from the Toradol, so that has been stopped. ASSESSMENT: Some acute renal insufficiency due to Toradol. PLAN: Hold Toradol. Begin clear liquid diet. Job ID: [id number]
--- NOTE | 2020-08-23 17:13 | PDOC.HOSPP ---
- Subjective Encounter Date: 08/23/20 Encounter Time: 12:30 Subjective: Patient seen and examined for medical management. Continues to have abdominal discomfort with nausea. Denies any chest pain or shortness of breath. - Objective Vital Signs & Weight: Vital Signs (12 hours) Temp Pulse Resp BP Pulse Ox 08/23/20 15:07 98.3 F 47 L 18 176/76 H 97 08/23/20 11:17 98.3 F 48 L 18 176/62 H 96 08/23/20 07:25 98.1 F 52 L 18 145/66 H 97 Weight Weight 184 lb 5 oz I&O: 08/22/20 08/23/20 08/24/20 06:59 06:59 06:59 Intake Total 3620 2770 Output Total 800 Balance 2820 2770 Result Diagrams: 08/23/20 05:30 08/23/20 14:34 Radiology Reviewed by me: Yes (Chest x-raynegative for infiltrate) Hospitalist ROS - Review of Systems Respiratory: denies: cough, dry, shortness of breath, hemoptysis, SOB with excertion, pleuritic pain, sputum, wheezing, other Cardiovascular: denies: chest pain, palpitations, orthopnea, paroxysmal noc. dyspnea, edema, light headedness, other - Medication Medications: Active Medications Generic Name Dose Route Start Last Admin Trade Name Freq PRN Reason Stop Dose Admin Enoxaparin Sodium 40 mg 08/20/20 21:00 08/22/20 20:29 Enoxaparin Sodium 40 Mg/0.4 Ml Syringe SC 40 mg 2100 EVERARDO Administration Famotidine 20 mg 08/20/20 21:00 08/23/20 09:08 Famotidine/Pf 20 Mg/2ml Vial SLOW IVP 20 mg Q12HR EVERARDO Administration Hydralazine HCl 10 mg 08/20/20 10:06 08/22/20 17:26 Hydralazine 20 Mg/Ml Vial SLOW IVP 10 mg Q4H PRN Administration SBP > 170 or DBP > 100 Piperacillin Sod/Tazobactam 100 mls @ 200 mls/hr 08/20/20 14:00 08/23/20 14:46 Sod 4.5 gm/ Sodium Chloride IVPB 100 mls 0100,0800,1400,2000 EVERARDO Administration Metronidazole 500 mg/ Device 100 mls @ 100 mls/hr 08/22/20 14:00 08/23/20 15:27 IVPB 100 mls Q8HR EVERARDO Administration Potassium Chloride 20 meq/ 1,010 mls @ 75 mls/hr 08/22/20 18:34 08/23/20 12:54 Lactated Ringer's IV Not Given .[id number] EVERARDO Morphine Sulfate 4 mg 08/20/20 10:06 08/21/20 13:46 Morphine 4 Mg/Ml Vial SLOW IVP 4 mg Q2H PRN Administration Moderate Pain (4-6) Ondansetron HCl 4 mg 08/20/20 10:11 08/23/20 03:48 Ondansetron Pf 4 Mg/2 Ml Vial IVP 4 mg Q6H PRN Administration Nausea/Vomiting Saccharomyces Boulardii 250 mg 08/23/20 09:00 08/23/20 08:45 Saccharomyces Boulardii 250 Mg Cap PO 250 mg DAILY EVERARDO Administration Scopolamine 1.5 mg 08/22/20 14:00 08/22/20 13:50 Scopolamine 1.5 Mg/72 Hour Patch TD 1.5 mg Q3D EVERARDO Administration - Exam General Appearance: ill appearing General - other findings: In distress due to abdominal pain Heart: RRR, no gallops Respiratory: no wheezes, no ronchi Gastrointestinal: soft, no guarding, no rigidity, tender to palpation Extremities: no cyanosis Neurological: no new deficit Psychiatric: A&O x 3 Hosp A/P - Plan DVT proph w/SCDs Elevated blood pressure probably due to abdominal pain Shortness of breathimproved. Chest x-ray negative for infiltrate Acute kidney injury on CKD stage III Hypokalemia/hypophosphatemia Obesity with a BMI 32.6 Mild to moderate mitral regurgitation Chronic diastolic dysfunction Plan: Hold Toradol. Continue IV fluids. Replace electrolytes. Pain control and antibiotics per primary service. Echocardiogram reviewed. Recheck labs in a.m.
[2020-08-23] MEDS: Enoxaparin Sodium 40 MG/0.4 ML SYRINGE SC SCH (20:16)
[2020-08-24 00:34] LABS: Bacteria/HPF 1+ HPF (None Seen); Bilirubin 4+ (Negative); Blood, Urine 3+ (Negative); Clarity Turbid (Clear); Glucose, Urine (Dipstick) Normal (Negative); Ketone, Urine 10 mg/dL (Negative); Leukocyte 500 Leu/uL (Negative); Nitrite Negative (Negative); Protein, Urine (Dipstick) 100 mg/dL (Neg-Trace); RBC/HPF Greater than 50 HPF (0-3); Specific Gravity, Urine 1.032 (1.002-1.036); Squamous Epithelial 0-3 HPF (0-3); Urobilinogen Normal mg/dL (Less than 2); WBC/HPF 21-50 HPF (0-3); pH, Urine 5.5 (5.0-9.0)
[2020-08-24] MEDS: Piperacillin/Tazobactam 4.5 GM in Sodium Chloride 0.9% 100 ML IVPB SCH ×3 (01:02→15:07)
[2020-08-24] MEDS: hydrALAZINE 20 MG/ML VIAL SLOW IVP PRN (01:03)
[2020-08-24] MEDS: Ondansetron PF 4 MG/2 ML Vial IVP PRN (01:11)
[2020-08-24] MEDS: Morphine 4 MG/ML VIAL SLOW IVP PRN (01:11)
[2020-08-24] MEDS: Potassium Chloride 20 MEQ in Lactated Ringer's 1,000 ML IV SCH ×3 (04:26→23:05)
[2020-08-24] MEDS: metroNIDAZOLE 500 MG in Premix Bag 1 BAG IVPB SCH ×3 (05:45→23:04)
[2020-08-24 08:29] LABS: #Basophils 0.1 thou/uL (0.0-0.2); #Eosinphils 0.3 thou/uL (0.0-0.7); #Lymphocytes 1.7 thou/uL (1.20-3.40); #Monocytes 0.8 thou/uL (0.11-0.59); #Neutrophils 9.1 thou/uL (1.40-6.50); %Basophils 0.6 % (0.0-1.0); %Eosinophils 2.7 % (0.0-10.0); %Lymphocytes 14.5 % (21.0-51.0); %Monocytes 6.3 % (0.0-10.0); Hemoglobin 9.5 g/dL (12.0-16.0); Mean Corpuscular HGB CONC 33.7 g/dL (32.0-36.0); Mean Corpuscular Hemoglobin 30.2 pg (27.0-31.0); Mean Corpuscular Volume 89.5 fL (78.0-98.0); Mean Platelet Volume 7.6 fL (7.4-10.4); Platelet Count 296 thou/uL (130-400); RBC Distribution Width 12.8 % (11.5-14.5); Red Blood Cell (RBC) Count 3.16 mill/uL (4.20-5.40); White Blood Cell (WBC) Count 11.9 thou/uL (4.8-10.8)
[2020-08-24 08:41] LABS: Anion Gap 17 mmol/L (10-20); BUN (Urea Nitrogen) 39 mg/dL (9.8-20.1); Calc. Creatinine Clearance 43 mL/min (70-130); Carbon Dioxide 20 mmol/L (22-29); Chloride 113 mmol/L (98-107); Glucose 110 mg/dL (70-105); Potassium 3.8 mmol/L (3.5-5.1); Sodium 146 mmol/L (136-145)
[2020-08-24 08:45] LABS: Phosphorus 3.8 mg/dL (2.3-4.7)
[2020-08-24] MEDS: Famotidine/PF 20 mg/2ml Vial SLOW IVP SCH (08:51)
[2020-08-24] MEDS: Saccharomyces boulardii 250 MG CAP PO SCH (08:52)
--- NOTE | 2020-08-24 11:08 | PRG ---
DATE OF SERVICE: 08/24/2020 SUBJECTIVE: Ms. Moore is a 54-year-old female, who was admitted for abdominal pain. She was diagnosed with diverticulitis, started on IV antibiotics. The patient was evaluated and we felt that the acute kidney injury could be related to a hemodynamically-mediated renal dysfunction secondary to Toradol. She is currently receiving empiric volume repletion. No new complaints today. Abdominal pain is better. Denies any shortness of breath. OBJECTIVE: VITAL SIGNS: Blood pressure is 163/62, heart rate 53, respiratory rate 18, temperature 98.4, O2 saturation 96% on room air. GENERAL: The patient is awake, alert, sitting comfortable, not in overt distress. SKIN: Adequate turgor. HEENT: Pinkish conjunctivae. Anicteric sclerae. NECK: No neck mass. No carotid bruits. No JVD. CHEST: No deformities. LUNGS: Clear breath sounds. No wheezing. No crackles. HEART: Normal sinus rhythm. No murmur. No gallops. No rubs. ABDOMEN: Globular, soft, nontender. No masses. EXTREMITIES: No edema. No deformities. MEDICATIONS: Of August 24, 2020, were reviewed. LABORATORY DATA: Laboratories of August 24, 2020: White count 11.9, hemoglobin 9.5. Sodium 146, potassium 3.8, chloride 113, carbon dioxide 20, BUN 39, creatinine 2.02, GFR 26 mL/minute, calcium 8, phosphorus 3.8. Urinalysis of August 23, 2020; specific gravity 1.032, protein is 100, rbc's greater than 50, wbc's 21 to 50, bacteria 1+. ASSESSMENT AND PLAN: 1. Diverticulitis/urinary tract infection - currently on IV antibiotics. 2. Acute kidney injury - urine sediment did not show any evidence of pigmented granular casts, making acute tubular necrosis less likely. I still feel that the patient may simply have hemodynamically-mediated renal dysfunction. Continue current IV fluid. We will probably increase it from 75 to 100 mL/h. There is no indication for any dialytic intervention with this patient. 3. We will recheck CBC and basic metabolics in a.m. Job ID: [id number]
--- NOTE | 2020-08-24 12:12 | PRG ---
DATE OF SERVICE: 08/24/2020 SUBJECTIVE: The patient says that she really is having no pain, but she still has some nausea, but her bowels are functioning, she is passing gas. She says she is tolerating her clear liquids. PHYSICAL EXAMINATION: VITAL SIGNS: Temperature is 98.4, pulse 53, blood pressure 163/62. GENERAL: Awake, alert. ABDOMEN: Obese, soft. No significant tenderness. EXTREMITIES: Unremarkable. LABORATORY DATA: Her white blood cell count is down to 11.9, hemoglobin and hematocrit are 9.5 and 28, and platelet count 296. Her creatinine is 2, her BUN is 39, glucose is 110. ASSESSMENT: Diverticulitis with partial obstruction, improving, with some renal insufficiency. PLAN: Continue IV fluids, IV antibiotics. Job ID: [id number]
--- NOTE | 2020-08-24 17:14 | PDOC.HOSPP ---
- Subjective Encounter Date: 08/24/20 Encounter Time: 10:30 Subjective: Patient seen and examined for medical management. Mild nausea with one episode of vomiting earlier today. Abdominal pain improving. Denies any chest pain or shortness of breath. No fever or chills reported. - Objective Vital Signs & Weight: Vital Signs (12 hours) Temp Pulse Resp BP Pulse Ox 08/24/20 11:21 98.2 F 52 L 18 167/66 H 97 08/24/20 08:04 98.4 F 53 L 18 163/62 H 96 08/24/20 08:00 96 Weight Weight 184 lb 5 oz I&O: 08/23/20 08/24/20 08/25/20 06:59 06:59 06:59 Intake Total 2770 320 Balance 2770 320 Result Diagrams: 08/24/20 08:06 08/24/20 08:06 Additional Labs: Abnormal Lab Results - Last 48 hrs 08/22/20 19:00: BUN 23 H, Creatinine 1.63 H, Phosphorus 2.2 L, Direct Bilirubin 0.5 H, Albumin 3.4 L 08/22/20 19:00: B-Natriuretic Peptide 318.4 H 08/22/20 19:00: D-Dimer 7.69 H 08/22/20 19:00: Hgb 10.3 L, Hct 31.6 L 08/23/20 05:30: Chloride 110 H, Carbon Dioxide 19 L, BUN 29 H, Creatinine 1.81 H 08/23/20 05:30: WBC 12.3 H, RBC 3.09 L, Hgb 9.3 L, Hct 28.1 L, MPV 7.3 L, Neutrophils % 82.0 H, Lymphocytes % 10.3 L, Basophils % 1.3 H, Neutrophils # 10.0 H 08/23/20 14:34: Chloride 110 H, Carbon Dioxide 16 L, Anion Gap 22 H, BUN 35 H, Creatinine 2.02 H 08/23/20 23:05: Urine Clarity Turbid A, Urine Protein 100 A, Urine Ketones 10 A, Urine Blood 3+ A, Urine Bilirubin 4+ A, Ur Leukocyte Esterase 500 A, Urine RBC Greater than 50 A, Urine WBC 21-50 A, Urine Bacteria 1+ A 08/24/20 08:06: Sodium 146 H, Chloride 113 H, Carbon Dioxide 20 L, BUN 39 H, Creatinine 2.02 H 08/24/20 08:06: WBC 11.9 H, RBC 3.16 L, Hgb 9.5 L, Hct 28.3 L, Neutrophils % 76.0 H, Lymphocytes % 14.5 L, Neutrophils # 9.1 H, Monocytes # 0.8 H Microbiology - Entire Visit 08/19/20 23:06 Venous blood - Right Arm Blood Culture - Preliminary Bacteroides vulgatus 08/19/20 23:06 Venous blood - Left Arm Blood Culture - Preliminary NO GROWTH AT 48 HOURS 08/19/20 22:10 Urine clean catch Urine Culture - Final Hospitalist ROS - Review of Systems Respiratory: denies: cough, dry, shortness of breath, hemoptysis, SOB with excertion, pleuritic pain, sputum, wheezing, other Cardiovascular: denies: chest pain, palpitations, orthopnea, paroxysmal noc. dyspnea, edema, light headedness, other - Medication Medications: Active Medications Generic Name Dose Route Start Last Admin Trade Name Freq PRN Reason Stop Dose Admin Enoxaparin Sodium 40 mg 08/20/20 21:00 08/23/20 20:16 Enoxaparin Sodium 40 Mg/0.4 Ml Syringe SC 40 mg 2100 EVERARDO Administration Hydralazine HCl 10 mg 08/20/20 10:06 08/24/20 01:03 Hydralazine 20 Mg/Ml Vial SLOW IVP 10 mg Q4H PRN Administration SBP > 170 or DBP > 100 Piperacillin Sod/Tazobactam 100 mls @ 200 mls/hr 08/20/20 14:00 08/24/20 15:07 Sod 4.5 gm/ Sodium Chloride IVPB 100 mls 0100,0800,1400,2000 EVERARDO Administration Metronidazole 500 mg/ Device 100 mls @ 100 mls/hr 08/22/20 14:00 08/24/20 16:04 IVPB 100 mls Q8HR EVERARDO Administration Potassium Chloride 20 meq/ 1,010 mls @ 100 mls/hr 08/24/20 10:39 08/24/20 10:45 Lactated Ringer's IV 1,010 mls .Q10H6M EVERARDO Administration Morphine Sulfate 4 mg 08/20/20 10:06 08/24/20 01:11 Morphine 4 Mg/Ml Vial SLOW IVP 4 mg Q2H PRN Administration Moderate Pain (4-6) Ondansetron HCl 4 mg 08/20/20 10:11 08/24/20 01:11 Ondansetron Pf 4 Mg/2 Ml Vial IVP 4 mg Q6H PRN Administration Nausea/Vomiting Saccharomyces Boulardii 250 mg 08/23/20 09:00 08/24/20 08:52 Saccharomyces Boulardii 250 Mg Cap PO 250 mg DAILY EVERARDO Administration Scopolamine 1.5 mg 08/22/20 14:00 08/22/20 13:50 Scopolamine 1.5 Mg/72 Hour Patch TD 1.5 mg Q3D EVERARDO Administration - Exam General Appearance: NAD Heart: RRR, no gallops Respiratory: no wheezes, no ronchi Gastrointestinal: soft, non-distended, normal bowel sounds Extremities: no cyanosis, no clubbing Neurological: no new deficit Hosp A/P - Plan DVT proph w/SCDs Hypertensionuncontrolled Shortness of breath improved. Chest x-ray negative for infiltrate Acute kidney injury on CKD stage III Hypokalemia/hypophosphatemia Obesity with a BMI 32.6 Mild to moderate mitral regurgitation Chronic diastolic dysfunction Plan: Echocardiogram reviewed. We will start amlodipine due to elevated blood pressure. Abdominal pain improving. Continue as needed antihypertensives. Continue IV fluids for VICKIE. A.m. labs. Echocardiogram report discussed with the patient
[2020-08-24] MEDS ORDERED: Amlodipine 5 MG TAB PO SCH (17:15)
[2020-08-24] MEDS: Piperacillin/Tazobactam 2.25 GM in Sodium Chloride 0.9% 100 ML IVPB SCH (20:39)
[2020-08-24] MEDS: Enoxaparin Sodium 40 MG/0.4 ML SYRINGE SC SCH (20:39)
[2020-08-25] MEDS: Piperacillin/Tazobactam 2.25 GM in Sodium Chloride 0.9% 100 ML IVPB SCH ×4 (03:59→21:48)
[2020-08-25] MEDS: metroNIDAZOLE 500 MG in Premix Bag 1 BAG IVPB SCH ×3 (05:49→21:49)
[2020-08-25 05:55] LABS: #Basophils 0.1 thou/uL (0.0-0.2); #Eosinphils 0.2 thou/uL (0.0-0.7); #Lymphocytes 1.5 thou/uL (1.20-3.40); #Monocytes 0.9 thou/uL (0.11-0.59); %Basophils 0.5 % (0.0-1.0); %Eosinophils 1.7 % (0.0-10.0); %Lymphocytes 11.6 % (21.0-51.0); %Monocytes 6.9 % (0.0-10.0); %Neutrophils 79.3 % (42.0-75.0); Hemoglobin 9.4 g/dL (12.0-16.0); Mean Corpuscular HGB CONC 32.5 g/dL (32.0-36.0); Mean Corpuscular Hemoglobin 29.6 pg (27.0-31.0); Mean Corpuscular Volume 90.9 fL (78.0-98.0); Mean Platelet Volume 7.7 fL (7.4-10.4); Platelet Count 323 thou/uL (130-400); RBC Distribution Width 13.1 % (11.5-14.5); Red Blood Cell (RBC) Count 3.17 mill/uL (4.20-5.40); White Blood Cell (WBC) Count 12.6 thou/uL (4.8-10.8)
[2020-08-25 06:12] LABS: Phosphorus 3.1 mg/dL (2.3-4.7)
[2020-08-25 06:15] LABS: Anion Gap 15 mmol/L (10-20); BUN (Urea Nitrogen) 33 mg/dL (9.8-20.1); Calc. Creatinine Clearance 49 mL/min (70-130); Calcium 8.2 mg/dL (7.8-10.44); Carbon Dioxide 22 mmol/L (22-29); Chloride 110 mmol/L (98-107); Glucose 130 mg/dL (70-105); Potassium 3.6 mmol/L (3.5-5.1); Sodium 143 mmol/L (136-145)
[2020-08-25 06:55] LABS: Anion Gap 16 mmol/L (10-20); BUN (Urea Nitrogen) 32 mg/dL (9.8-20.1); Calc. Creatinine Clearance 52 mL/min (70-130); Calcium 8.1 mg/dL (7.8-10.44); Carbon Dioxide 18 mmol/L (22-29); Chloride 113 mmol/L (98-107); Glucose 118 mg/dL (70-105); Potassium 3.8 mmol/L (3.5-5.1); Sodium 143 mmol/L (136-145)
[2020-08-25] MEDS: Potassium Chloride 20 MEQ in Lactated Ringer's 1,000 ML IV SCH ×2 (08:12→18:27)
[2020-08-25] MEDS ORDERED: Amlodipine 5 MG TAB PO SCH (09:00)
[2020-08-25] MEDS: hydrALAZINE 20 MG/ML VIAL SLOW IVP PRN ×2 (09:18→15:30)
[2020-08-25] MEDS: NIFEdipine XL 30 MG TAB PO SCH (09:18)
[2020-08-25] MEDS: Famotidine/PF 20 mg/2ml Vial SLOW IVP SCH (09:18)
[2020-08-25] MEDS: Saccharomyces boulardii 250 MG CAP PO SCH (09:18)
--- NOTE | 2020-08-25 09:30 | PRG ---
DATE OF SERVICE: 08/25/2020 SUBJECTIVE: Ms. Moore is a 54-year-old female, who was admitted for diverticulitis, currently on IV antibiotics. I saw this patient for acute kidney injury. At that time, we felt that this was all hemodynamically-mediated renal dysfunction secondary to the Toradol use. Toradol was discontinued and IV fluid was given. Renal function is slowly improving. No complaints today. No chest pain or shortness of breath. OBJECTIVE: VITAL SIGNS: Blood pressure 181/70, heart rate 54, respiratory rate 14, temperature 98.4, O2 saturation 98%. GENERAL: The patient is awake, alert, comfortable, not in distress. SKIN: Adequate turgor. HEENT: Pinkish conjunctivae. Anicteric sclerae. NECK: No neck mass. No carotid bruits. No JVD. CHEST: No deformities. LUNGS: Clear breath sounds. No wheezing. No crackles. HEART: Normal sinus rhythm. No murmur. No gallops. No rubs. ABDOMEN: Globular, soft, nontender. No masses. EXTREMITIES: No edema. No deformities. MEDICATIONS: On August 25, 2020, were reviewed. LABORATORY DATA: On August 25, 2020; white count 12.6, hemoglobin 9.4. Sodium 143, potassium 3.8, chloride 118, carbon dioxide 18, BUN 32, creatinine 1.66, glucose 118, calcium 8.1. ASSESSMENT AND PLAN: 1. Acute kidney injury - hemodynamically-mediated renal dysfunction secondary to Toradol use. We have discontinued Toradol. Continue IV fluid. No indication for any dialytic intervention. 2. Labile hypertension. Nifedipine 30 mg XL tablet was started today. 3. Acute diverticulitis, currently on IV antibiotics, clinically improving. 4. We will recheck CBC and basic metabolic in a.m. Job ID: [id number]
--- NOTE | 2020-08-25 14:12 | PRG ---
DATE OF SERVICE: SUBJECTIVE: Patient reports that she is really having no abdominal pain. She has mild dyspnea. She reports pedal edema bilateral. She is on Lovenox. OBJECTIVE: VITAL SIGNS: O2 saturation is 98% on room air. Her temperature is 98, pulse 55, blood pressure 176/79. ABDOMEN: She has bowel sounds, but she is a little bit distended. She is passing gas. LABORATORY DATA: Her white count is 12, H and H 9 and 28, platelet count 323. Her creatinine is coming down, it is at 1.66; glucose 118. ASSESSMENT: Diverticulitis. PLAN: Chest x-ray. Continue ambulation. Job ID: [id number]
--- NOTE | 2020-08-25 14:47 | RAD ---
RADIOGRAPH CHEST 1 VIEW: DATE: 08/25/2020 TIME: 2:35 PM HISTORY: 54-year-old female with dyspnea COMPARISON: 08/22/2020 FINDINGS: The volume of free intraperitoneal air under the bilateral hemidiaphragms, has decreased. Bilateral very small pleural effusions are again noted. New finding of mild airspace opacity at base of right lower lobe, and minimal such density at base of left lower lobe. No pulmonary edema or pneumothorax. IMPRESSION: 1) small bilateral pleural effusions. 2) new finding of mild right and minimal left airspace opacities in the bilateral lower lobe bases. T hese are nonspecific, and could represent passive atelectasis or pneumonia. 3) interval decrease in volume of pneumoperitoneum.
[2020-08-25] MEDS: Scopolamine 1.5 mg/72 hour Patch TD SCH (15:27)
--- NOTE | 2020-08-25 18:35 | PDOC.HOSPP ---
- Subjective Encounter Date: 08/25/20 Encounter Time: 11:30 Subjective: Patient seen and examined for medical management. Denies any chest pain or shortness of breath. Complains of generalized anasarca mainly in the lower extremity. Abdominal pain and nausea improving. - Objective Vital Signs & Weight: Vital Signs (12 hours) Temp Pulse Resp BP BP Pulse Ox 08/25/20 15:30 55 L 08/25/20 15:24 98.2 F 54 L 16 176/74 H 99 08/25/20 12:10 98 F 55 L 16 176/79 H 98 08/25/20 09:18 54 L 08/25/20 08:22 98.4 F 54 L 14 181/70 H 98 Weight Weight 184 lb 5 oz I&O: 08/24/20 08/25/20 08/26/20 06:59 06:59 06:59 Intake Total 320 1840 Balance 320 1840 Result Diagrams: 08/25/20 05:14 08/25/20 06:25 Radiology Reviewed by me: Yes (Chest x-rayatelectasis with some pleural effusion) Hospitalist ROS - Review of Systems Respiratory: denies: cough, dry, shortness of breath, hemoptysis, SOB with excertion, pleuritic pain, sputum, wheezing, other Cardiovascular: denies: chest pain, palpitations, orthopnea, paroxysmal noc. dyspnea, edema, light headedness, other - Medication Medications: Active Medications Generic Name Dose Route Start Last Admin Trade Name Freq PRN Reason Stop Dose Admin Enoxaparin Sodium 40 mg 08/20/20 21:00 08/24/20 20:39 Enoxaparin Sodium 40 Mg/0.4 Ml Syringe SC 40 mg 2100 EVERARDO Administration Famotidine 20 mg 08/25/20 09:00 08/25/20 09:18 Famotidine/Pf 20 Mg/2ml Vial SLOW IVP 20 mg DAILY EVERARDO Administration Hydralazine HCl 10 mg 08/20/20 10:06 08/25/20 15:30 Hydralazine 20 Mg/Ml Vial SLOW IVP 10 mg Q4H PRN Administration SBP > 170 or DBP > 100 Metronidazole 500 mg/ Device 100 mls @ 100 mls/hr 08/22/20 14:00 08/25/20 15:28 IVPB 100 mls Q8HR EVERARDO Administration Potassium Chloride 20 meq/ 1,010 mls @ 100 mls/hr 08/24/20 10:39 08/25/20 18:27 Lactated Ringer's IV Not Given .Q10H6M EVERARDO Piperacillin Sod/Tazobactam 100 mls @ 200 mls/hr 08/24/20 21:00 08/25/20 15:33 Sod 2.25 gm/ Sodium Chloride IVPB 100 mls 0300,0900,1500,2100 EVERARDO Administration Morphine Sulfate 4 mg 08/20/20 10:06 08/24/20 01:11 Morphine 4 Mg/Ml Vial SLOW IVP 4 mg Q2H PRN Administration Moderate Pain (4-6) Nifedipine 30 mg 08/25/20 09:00 08/25/20 09:18 Nifedipine Xl 30 Mg Tab PO 30 mg DAILY EVERARDO Administration Ondansetron HCl 4 mg 08/20/20 10:11 08/24/20 01:11 Ondansetron Pf 4 Mg/2 Ml Vial IVP 4 mg Q6H PRN Administration Nausea/Vomiting Saccharomyces Boulardii 250 mg 08/23/20 09:00 08/25/20 09:18 Saccharomyces Boulardii 250 Mg Cap PO 250 mg DAILY EVERARDO Administration Scopolamine 1.5 mg 08/22/20 14:00 08/25/20 15:27 Scopolamine 1.5 Mg/72 Hour Patch TD 1.5 mg Q3D EVERARDO Administration - Exam General Appearance: NAD Neck: supple, no JVD Heart: RRR, no gallops Respiratory: no wheezes, no rales, rhonchi Gastrointestinal: soft, no guarding, no rigidity Extremities: no cyanosis Neurological: no new deficit Psychiatric: A&O x 3 Hosp A/P - Plan DVT proph w/SCDs Hypertensionuncontrolled Shortness of breathmultifactorial Acute kidney injury on CKD stage III Hypokalemia/hypophosphatemia Obesity with a BMI 32.6 Mild to moderate mitral regurgitation Chronic diastolic dysfunction Plan: Discontinue amlodipine. Will hold IV fluids for now due to generalized anasarca. Start Procardia XL due to elevated blood pressure. Recheck electrolytes in a.m. Renal function slowly improving. Continue other medications as above
[2020-08-25] MEDS: Enoxaparin Sodium 40 MG/0.4 ML SYRINGE SC SCH (21:48)
[2020-08-25] MEDS: Morphine 4 MG/ML VIAL SLOW IVP PRN (23:20)
[2020-08-26] MEDS: Piperacillin/Tazobactam 2.25 GM in Sodium Chloride 0.9% 100 ML IVPB SCH ×4 (03:13→20:23)
[2020-08-26] MEDS: metroNIDAZOLE 500 MG in Premix Bag 1 BAG IVPB SCH ×2 (05:22→14:06)
[2020-08-26 05:49] LABS: Anion Gap 15 mmol/L (10-20); BUN (Urea Nitrogen) 24 mg/dL (9.8-20.1); Calc. Creatinine Clearance 57 mL/min (70-130); Calcium 7.8 mg/dL (7.8-10.44); Carbon Dioxide 20 mmol/L (22-29); Chloride 112 mmol/L (98-107); Glucose 93 mg/dL (70-105); Potassium 3.6 mmol/L (3.5-5.1); Sodium 143 mmol/L (136-145)
[2020-08-26] MEDS: Saccharomyces boulardii 250 MG CAP PO SCH (08:37)
[2020-08-26] MEDS: Famotidine/PF 20 mg/2ml Vial SLOW IVP SCH (08:37)
[2020-08-26] MEDS: NIFEdipine XL 30 MG TAB PO SCH (08:37)
--- NOTE | 2020-08-26 10:31 | PRG ---
DATE OF SERVICE: 08/26/2020 SUBJECTIVE: Ms. Moore is a 54-year-old female who was admitted for acute diverticulitis. We saw this patient due to acute kidney injury secondary to hemodynamically-mediated renal dysfunction. Toradol has been discontinued, and she was started on IV fluids. Complaining of some mild leg swelling. No complaints of chest pain or shortness of breath. OBJECTIVE: VITAL SIGNS: Blood pressure is 148/64, heart rate 58, respiratory rate 16, temperature 98.3, and O2 saturation 97%. GENERAL: The patient is awake, alert, sitting comfortable, not in distress. SKIN: Adequate turgor. HEENT: Pinkish conjunctivae. Anicteric sclerae. NECK: No neck mass. No carotid bruits. No JVD. CHEST: No deformities. LUNGS: Clear breath sounds. No wheezing. No crackles. HEART: Normal sinus rhythm. No murmur. No gallops. No rubs. ABDOMEN: Globular, soft, nontender. No masses. EXTREMITIES: Trace edema. MEDICATIONS: Of August 26, 2020, were reviewed. LABORATORY DATA: Laboratories of August 25, 2020; white count 12.6, hemoglobin 9.4. Sodium 143, potassium 4.6, chloride 112, carbon dioxide 20, BUN 24, creatinine 1.51, and calcium 7.8. ASSESSMENT AND PLAN: 1. Leg edema. This could be related from the use of amlodipine. Continue to observe. 2. Acute kidney injury - superimposed hemodynamically-mediated renal dysfunction. Much improved with discontinuation of the Toradol. No indication for any dialytic intervention. Due to much improved renal function, we will be signing off. The patient was instructed to follow up [facility]. Job ID: [id number]
[2020-08-26] MEDS ORDERED: NIFEdipine XL 30 MG TAB PO PRN (14:19)
[2020-08-26] MEDS: hydrALAZINE 25 MG TAB PO SCH ×2 (15:28→20:24)
[2020-08-26] MEDS: Sodium Chloride 0.65% Nasal 44 ML BOT EA NARE SCH ×2 (17:04→20:24)
--- NOTE | 2020-08-26 19:40 | PRG ---
DATE OF SERVICE: 08/26/2020 SUBJECTIVE: Coleen Moore feels much better. OBJECTIVE: VITAL SIGNS: She is afebrile, 97.9, 75, 160/87. GENERAL: Abdominal pain has resolved. LUNGS: Clear to auscultation. CARDIAC: Regular rate and rhythm. No murmur or gallop. ABDOMEN: Soft, nontender. LABORATORY DATA: White count 12, hemoglobin 9.4, BUN 24, and creatinine 1.51. Dr. Savage has seen her and adjusted her blood pressure medications and her blood pressure has been stable. Currently, she is on LR TKO and antibiotics. ASSESSMENT AND PLAN: Resolving diverticulitis. Her abdomen is soft and nontender. She does reports some dyspnea. Her oxygen was removed. The patient had a chest x-ray yesterday at 1 p.m. that was unremarkable except for small pleural effusions, decreased pneumoperitoneum. Doing well would start full liquids. We perhaps could think about discharging her home tomorrow on oral antibiotics pending her clinical course. Job ID: [id number]
[2020-08-26] MEDS: Enoxaparin Sodium 40 MG/0.4 ML SYRINGE SC SCH (20:24)
--- NOTE | 2020-08-26 20:40 | PDOC.HOSPP ---
- Subjective Encounter Date: 08/26/20 Encounter Time: 10:30 Subjective: Patient seen and examined for medical management. Abdominal pain and nausea improving. Denies any chest pain or palpitations. Complains of generalized anasarca especially in bilateral lower extremity. - Objective Vital Signs & Weight: Vital Signs (12 hours) Temp Pulse Resp BP BP Pulse Ox 08/26/20 20:29 98.1 F 66 20 155/75 H 96 08/26/20 20:24 75 08/26/20 16:46 97.9 F 75 12 160/87 H 97 08/26/20 15:28 59 L 08/26/20 12:21 98.2 F 59 L 16 167/64 H 97 08/26/20 08:38 98.3 F 58 L 16 148/64 H 97 Weight Admit Weight 184 lb Weight 184 lb 5 oz I&O: 08/25/20 08/26/20 08/27/20 06:59 06:59 06:59 Intake Total 1840 2500 Output Total 1800 Balance 1840 700 Result Diagrams: 08/25/20 05:14 08/26/20 05:17 Radiology Reviewed by me: Yes (Chest x-raynegative for infiltrate) Hospitalist ROS - Review of Systems Respiratory: denies: cough, dry, shortness of breath, hemoptysis, SOB with excertion, pleuritic pain, sputum, wheezing, other Cardiovascular: denies: chest pain, palpitations, orthopnea, paroxysmal noc. dyspnea, edema, light headedness, other - Medication Medications: Active Medications Generic Name Dose Route Start Last Admin Trade Name Freq PRN Reason Stop Dose Admin Enoxaparin Sodium 40 mg 08/20/20 21:00 08/26/20 20:24 Enoxaparin Sodium 40 Mg/0.4 Ml Syringe SC 40 mg 2100 EVERARDO Administration Famotidine 20 mg 08/25/20 09:00 08/26/20 08:37 Famotidine/Pf 20 Mg/2ml Vial SLOW IVP 20 mg DAILY EVERARDO Administration Hydralazine HCl 10 mg 08/20/20 10:06 08/25/20 15:30 Hydralazine 20 Mg/Ml Vial SLOW IVP 10 mg Q4H PRN Administration SBP > 170 or DBP > 100 Hydralazine HCl 25 mg 08/26/20 15:00 08/26/20 20:24 Hydralazine 25 Mg Tab PO 25 mg TID EVERARDO Administration Piperacillin Sod/Tazobactam 100 mls @ 200 mls/hr 08/24/20 21:00 08/26/20 20:23 Sod 2.25 gm/ Sodium Chloride IVPB 100 mls 0300,0900,1500,2100 EVERARDO Administration Morphine Sulfate 4 mg 08/20/20 10:06 08/25/20 23:20 Morphine 4 Mg/Ml Vial SLOW IVP 4 mg Q2H PRN Administration Moderate Pain (4-6) Ondansetron HCl 4 mg 08/20/20 10:11 08/24/20 01:11 Ondansetron Pf 4 Mg/2 Ml Vial IVP 4 mg Q6H PRN Administration Nausea/Vomiting Saccharomyces Boulardii 250 mg 08/23/20 09:00 08/26/20 08:37 Saccharomyces Boulardii 250 Mg Cap PO 250 mg DAILY EVERARDO Administration Scopolamine 1.5 mg 08/22/20 14:00 08/25/20 15:27 Scopolamine 1.5 Mg/72 Hour Patch TD 1.5 mg Q3D EVERARDO Administration Sodium Chloride 0 ml 08/26/20 15:00 08/26/20 20:24 Sodium Chloride 0.65% Nasal 44 Ml Bot EA NARE 1 spr TID EVERARDO Administration - Exam General Appearance: NAD Neck: supple, no JVD Heart: RRR, no gallops Respiratory: no wheezes, no ronchi Gastrointestinal: soft, normal bowel sounds Extremities: no cyanosis, 1+ LE edema Psychiatric: A&O x 3 Hosp A/P - Plan DVT proph w/SCDs Hypertensionuncontrolled Shortness of breathmultifactorial Acute kidney injury on CKD stage III Hypokalemia/hypophosphatemia Obesity with a BMI 32.6 Mild to moderate mitral regurgitation Chronic diastolic dysfunction Plan: We will discontinue Procardia XL due to edema. Will start her on hydralazine 25 mg 3 times a day. Renal function significantly improved. Shortness of breath improving. Avoid diuretics due to recent acute renal failure. Continue other medications as above. Advised patient to ambulate. Leg elevation qhs.
[2020-08-27] MEDS: Piperacillin/Tazobactam 2.25 GM in Sodium Chloride 0.9% 100 ML IVPB SCH ×4 (04:08→20:44)
[2020-08-27 07:30] LABS: Anion Gap 12 mmol/L (10-20); BUN (Urea Nitrogen) 15 mg/dL (9.8-20.1); Calc. Creatinine Clearance 65 mL/min (70-130); Calcium 7.9 mg/dL (7.8-10.44); Carbon Dioxide 24 mmol/L (22-29); Chloride 108 mmol/L (98-107); Glucose 94 mg/dL (70-105); Potassium 3.2 mmol/L (3.5-5.1); Sodium 141 mmol/L (136-145)
[2020-08-27] MEDS: hydrALAZINE 25 MG TAB PO SCH ×2 (08:58→16:05)
[2020-08-27] MEDS: Famotidine/PF 20 mg/2ml Vial SLOW IVP SCH (08:59)
[2020-08-27] MEDS: Saccharomyces boulardii 250 MG CAP PO SCH (08:59)
[2020-08-27] MEDS: Sodium Chloride 0.65% Nasal 44 ML BOT EA NARE SCH ×3 (09:00→20:43)
[2020-08-27] MEDS ORDERED: Potassium Chloride 20 MEQ TAB PO SCH ×2 (09:00→17:00)
[2020-08-27 19:35] VITALS: BP 173/77; TEMP 98.1
[2020-08-27] MEDS ORDERED: hydrALAZINE 25 MG TAB PO SCH ×2 (20:00→21:00)
--- NOTE | 2020-08-27 20:01 | PDOC.HOSPP ---
- Subjective Encounter Date: 08/27/20 Encounter Time: 11:30 Subjective: Patient seen and examined for medical management. Denies any new complaints. Poor appetite. Abdominal pain improving. No nausea, chest pain or palpitations. - Objective Vital Signs & Weight: Vital Signs (12 hours) Temp Pulse Resp BP Pulse Ox 08/27/20 19:35 98.1 F 60 20 173/77 H 95 08/27/20 16:05 66 08/27/20 15:24 98.5 F 66 18 161/82 H 98 08/27/20 11:06 99.0 F 60 18 152/60 H 99 Weight Admit Weight 184 lb Weight 184 lb 5 oz I&O: 08/26/20 08/27/20 08/28/20 06:59 06:59 06:59 Intake Total 2500 3580 Output Total 1800 1550 Balance 700 2030 Result Diagrams: 08/25/20 05:14 08/27/20 06:52 Hospitalist ROS - Review of Systems Respiratory: denies: cough, dry, shortness of breath, hemoptysis, SOB with excertion, pleuritic pain, sputum, wheezing, other Cardiovascular: denies: chest pain, palpitations, orthopnea, paroxysmal noc. dyspnea, edema, light headedness, other - Medication Medications: Active Medications Generic Name Dose Route Start Last Admin Trade Name Freq PRN Reason Stop Dose Admin Enoxaparin Sodium 40 mg 08/20/20 21:00 08/26/20 20:24 Enoxaparin Sodium 40 Mg/0.4 Ml Syringe SC 40 mg 2100 EVERARDO Administration Famotidine 20 mg 08/25/20 09:00 08/27/20 08:59 Famotidine/Pf 20 Mg/2ml Vial SLOW IVP 20 mg DAILY EVERARDO Administration Hydralazine HCl 10 mg 08/20/20 10:06 08/25/20 15:30 Hydralazine 20 Mg/Ml Vial SLOW IVP 10 mg Q4H PRN Administration SBP > 170 or DBP > 100 Hydralazine HCl 25 mg 08/26/20 15:00 08/27/20 16:05 Hydralazine 25 Mg Tab PO 25 mg TID EVERARDO Administration Piperacillin Sod/Tazobactam 100 mls @ 200 mls/hr 08/24/20 21:00 08/27/20 16:05 Sod 2.25 gm/ Sodium Chloride IVPB 100 mls 0300,0900,1500,2100 EVERARDO Administration Morphine Sulfate 4 mg 08/20/20 10:06 08/25/20 23:20 Morphine 4 Mg/Ml Vial SLOW IVP 4 mg Q2H PRN Administration Moderate Pain (4-6) Ondansetron HCl 4 mg 08/20/20 10:11 08/24/20 01:11 Ondansetron Pf 4 Mg/2 Ml Vial IVP 4 mg Q6H PRN Administration Nausea/Vomiting Saccharomyces Boulardii 250 mg 08/23/20 09:00 08/27/20 08:59 Saccharomyces Boulardii 250 Mg Cap PO 250 mg DAILY EVERARDO Administration Sodium Chloride 0 ml 08/26/20 15:00 08/27/20 16:05 Sodium Chloride 0.65% Nasal 44 Ml Bot EA NARE 1 spr TID EVERARDO Administration - Exam General Appearance: NAD Heart: RRR, no gallops Respiratory: no wheezes, no rales Gastrointestinal: soft, no guarding, no rigidity Extremities: no cyanosis Neurological: no new deficit Hosp A/P - Plan DVT proph w/SCDs Hypertension Shortness of breathmultifactorial Acute kidney injury on CKD stage IIIimproved Hypokalemia/hypophosphatemia Obesity with a BMI 32.6 Mild to moderate mitral regurgitation Chronic diastolic dysfunction Plan: Increase hydralazine to 50 mg 3 times daily due to uncontrolled blood pressure. Nifedipine/amlodipine discontinued due to edema. Replace potassium. Renal function improved. Continue as needed antihypertensives. Currently on full liquid diet.
[2020-08-27] MEDS: Enoxaparin Sodium 40 MG/0.4 ML SYRINGE SC SCH (20:44)
--- NOTE | 2020-08-28 05:36 | DIS ---
DATE OF ADMISSION: 08/20/2020 DATE OF DISCHARGE: 08/27/2020 DISCHARGE DIAGNOSIS: Perforated diverticulitis, pneumoperitoneum, hypertension. CONSULTATIONS: Hospitalist for hypertension who changed her antihypertensive to hydralazine 50 mg t.i.d. Florastor daily. PROCEDURES: CT scan of the abdomen and pelvis. HISTORY: 54-year-old female presents with a history and exam for diverticulitis, underwent a CAT scan supporting that she did have foci of free air, but she was given medical therapy and slowly improved during which time her diet was slowly advanced. She is discharged home on a low-fiber soft diet for 2 weeks, high-fiber after that. Discharge home with Augmentin 875 p.o. b.i.d. for 5 to 7 days. Follow up with Dr. Oliver in 2 to 3 weeks. Discharge hemoglobin 9.4, white count 11, discharge BUN and creatinine 15 and 1.33. She has had mild chronic kidney disease. Dr. Savage was consulted for both her hypertension and chronic kidney disease. Her Norvasc was discontinued. Job ID: [id number]
[2020-08-28] MEDS ORDERED: Amoxicillin/Potassium Clav 875 MG TAB PO SCH (09:00)
== END 2020-08-27 21:55 | disposition home or self-care (01) | DRG 392 ==
LOC: ERS 21:55 → SURG B 08-20 00:35
PROVIDERS: ADMIT Specialist; ATTEND Specialist
DX: K57.20 Diverticulitis of large intestine with perforation and abscess without bleeding (principal); N17.9 Acute kidney failure, unspecified; J90 Pleural effusion, not elsewhere classified; Z20.828 Contact with and (suspected) exposure to other viral communicable diseases; K66.8 Other specified disorders of peritoneum; E87.6 Hypokalemia; I12.9 Hypertensive chronic kidney disease with stage 1 through stage 4 chronic kidney disease, or unspecified chronic kidney disease; N18.30 Chronic kidney disease, stage 3 unspecified; T46.1X5A Adverse effect of calcium-channel blockers, initial encounter; R60.0 Localized edema; I34.0 Nonrheumatic mitral (valve) insufficiency; E66.9 Obesity, unspecified; E83.39 Other disorders of phosphorus metabolism; Z98.51 Tubal ligation status; Z98.890 Other specified postprocedural states; Z68.32 Body mass index [BMI] 32.0-32.9, adult
CPT/HCPCS: 36415; 71045; 71046; 74177; 76770; 80048; 80053; 80076; 81001; 81003; 81015; 83605; 83690; 83735; 83880; 84100; 85025; 85379; 87040; 87076; 87086; 87149; 87635; 93005; 93306; 93970; 96365; 96375; J0360; J1650; J1885; J2270; J2405; J2543; J3480; J3490; J7030; J7120; Q0162; Q9967; S0028; U0003

== ENCOUNTER 2023-03-25 23:27 | Emergency (ER) | payer SELFPAY ==
[2023-03-26] MEDS ORDERED: Aspirin 325 MG TAB ONE (00:05)
[2023-03-26 00:14] LABS: #Eosinphils 0.3 thou/uL (0.0-0.7); #Monocytes 0.7 thou/uL (0.11-0.59); #Neutrophils 8.7 thou/uL (1.40-6.50); %Basophils 0.2 % (0.0-1.0); %Eosinophils 2.5 % (0.0-10.0); %Lymphocytes 28.9 % (21.0-51.0); %Monocytes 4.7 % (0.0-10.0); %Neutrophils 63.3 % (42.0-75.0); Hemoglobin 12.7 g/dL (12.0-16.0); Mean Corpuscular HGB CONC 33.5 g/dL (32.0-36.0); Mean Corpuscular Hemoglobin 29.7 pg (27.0-31.0); Mean Corpuscular Volume 88.6 fl (78.0-98.0); Mean Platelet Volume 9.2 fL (7.4-10.4); Platelet Count 403 10x3/uL (130-400); RBC Distribution Width 13.8 % (11.5-14.5); Red Blood Cell (RBC) Count 4.28 mill/uL (4.20-5.40); White Blood Cell (WBC) Count 13.8 10x3/uL (4.8-10.8)
[2023-03-26 00:35] LABS: ALT (SGPT) 11 U/L (8-55); AST (SGOT) 15 U/L (5-34); Albumin 4.2 g/dL (3.5-5.0); Alkaline Phosphatase 97 U/L (40-110); Anion Gap 13 mmol/L (10-20); BUN (Urea Nitrogen) 21 mg/dL (9.8-20.1); Bilirubin, Total 0.3 mg/dL (0.2-1.2); Calc. Creatinine Clearance 0 mL/min (70-130); Calcium 9.6 mg/dL (7.8-10.44); Carbon Dioxide 28 mmol/L (22-29); Chloride 103 mmol/L (98-107); Estimated GFR 62; Globulin 3.6 g/dL (2.4-3.5); Glucose 109 mg/dL (70-105); Potassium 3.7 mmol/L (3.5-5.1); Protein, Total 7.8 g/dL (6.0-8.3); Sodium 140 mmol/L (136-145)
[2023-03-26] MEDS ORDERED: Acetaminophen 325 MG TAB ONE (01:05)
== END 2023-03-26 03:21 | disposition home or self-care (01) ==
LOC: ERS 23:27
DX: R07.89 Other chest pain (principal); I10 Essential (primary) hypertension; Z79.899 Other long term (current) drug therapy
CPT/HCPCS: 36415; 71045; 80053; 84484; 85025; 93005; 94760